=== PATIENT | female | born 1965 | race Two or more races ===

== ENCOUNTER 2023-12-24 08:00 | Inpatient (IN) | payer OTHER ==
[~2023-12-24] VITALS: Ht 162.6 cm; Wt 97.5 kg
[2023-12-24] MEDS ORDERED: NABUMETONE750 MG PO (10:11)
[2023-12-24] MEDS ORDERED: TYLENOL ARTHRI650 MG PO (10:12)
[2023-12-24] MEDS ORDERED: DICLOFENAC-MIS1 EAC1 PO (10:13)
[2023-12-24 10:33] LABS: PH,URINE 5.5 (5.0-8.0); URINE APPEARANCE Cloudy; URINE BILIRRUBIN Negative (NEGATIVE); URINE BLOOD Negative; URINE COLOR Yellow; URINE GLUCOSE Negative (NEGATIVE); URINE KETONE Negative (NEGATIVE); URINE LEUKOCYTE Small; URINE NITRATE Positive; URINE PROTEIN Negative (NEGATIVE); URINE UROBILINOGEN 0.2 E.U./dl
[2023-12-24 10:38] LABS: URINE RBC 3.3 uL (0.0-20.8); URINE WBC 124.8 uL (0.0-23.2)
[2023-12-24 10:49] LABS: URINE BACTERIA > 9821.5 uL (0.0-1933)
[2023-12-24 10:53] LABS: HEMATOCRIT 42.6 % (36.0-45.00); HEMOGLOBIN 14.2 g/dL (12.0-15.00); MEAN CELL VOLUME 81.2 fL (80.00-100.00); MEAN CORPUSCULAR HEMOGLOBIN 27.1 pg (27.00-32.0); MEAN CORPUSCULAR HGB CONC 33.3 g/dl (32.0-36.0); PLATELET COUNT 277 K/uL (150-450); RED BLOOD COUNT 5.25 M/uL (4.00-6.00); RED CELL DISTRIBUTION WIDTH 15.2 % (11.5-14.5)
[2023-12-24 11:25] LABS: INR 1.01; PARTIAL THROMBOPLASTIN TIME 31.1 SECONDS (22.0-34.0)
[2023-12-24 11:30] LABS: ALBUMIN 3.7 gm/dL (3.4-5.0); BILIRUBIN TOTAL 0.54 mg/dL (0.3-1.2); CREATININE SERUM 0.82 mg/dL (0.55-1.02); GFR 71.35; GLOBULINA 3.5 G/DL (2.4-3.5); POTASSIUM 4.45 mEq/L (3.5-5.1); TOTAL PROTEIN 7.2 gm/dL (6.4-8.2)
[2023-12-30] MEDS ORDERED: CEFAZOLIN SODIUM 1,000 MG VIAL ONE ×3 (06:58→13:22)
[2023-12-30] MEDS ORDERED: TRANEXAMIC ACID 100MG/1ML (1000MG) AMPUL IV ONE ×2 (06:58→07:10)
[2023-12-30] MEDS ORDERED: BUPIVACAINE HCL/MPF 0.5% 30ML VIAL ONE (07:06)
[2023-12-30] MEDS ORDERED: LIDOCAINE HCL 1%/EPINEPHRINE 20ML VIAL IJ ONE (07:06)
[2023-12-30] MEDS ORDERED: ISOPROPYL ALCOHOL 30 ML OUNCE TOP ONE (07:06)
[2023-12-30] MEDS ORDERED: OxyCODONE HCL/APAP UD (PERCOCET) PO PRN (08:00)
[2023-12-30] MEDS ORDERED: ONDANSETRON HCL 2 MG/ML VIAL IV PRN (08:00)
[2023-12-30] MEDS ORDERED: KETOROLAC TROMETHAMINE 60 MG VIAL IM ONE (08:15)
[2023-12-30] MEDS ORDERED: MORPHINE SULFATE 4 MG/ML VIAL IV ONE ×3 (10:25→11:10)
[2023-12-30] MEDS ORDERED: CEFAZOLIN SODIUM 1,000 MG VIAL IV SCH (12:00)
[2023-12-30] MEDS ORDERED: MORPHINE SULFATE 4 MG/ML VIAL IV SCH (12:00)
[2023-12-30 14:41] VITALS: BP 117/67; O2SAT 95
[2023-12-30 15:00] VITALS: BP 133/64; O2SAT 98
[2023-12-30] MEDS ORDERED: ACETAMINOPHEN 500 MG GEL..CAP PO PRN (15:15)
[2023-12-30] MEDS ORDERED: ENALAPRILAT DIHYDRATE 1.25 MG/ML VIAL IV PRN (15:15)
[2023-12-30] MEDS ORDERED: FAMOTIDINE/PF 20 MG in 0.9 % SODIUM CHLORIDE 8 ML IV PUSH SCH (21:00)
[2023-12-30] MEDS ORDERED: GABAPENTIN 100 MG CAPSULE PO SCH (21:00)
[2023-12-30] MEDS ORDERED: ORPHENADRINE CITRATE 100 MG TABLET PO SCH (21:00)
[2023-12-31 00:56] VITALS: BP 103/68; O2SAT 95
[2023-12-31 00:57] VITALS: BP 103/68; O2SAT 96
[2023-12-31 06:29] LABS: HEMATOCRIT 39.2 % (36.0-45.00); MEAN CELL VOLUME 82.6 fL (80.00-100.00); MEAN CORPUSCULAR HEMOGLOBIN 27.4 pg (27.00-32.0); MEAN CORPUSCULAR HGB CONC 33.2 g/dl (32.0-36.0); PLATELET COUNT 219 K/uL (150-450); RED BLOOD COUNT 4.74 M/uL (4.00-6.00); RED CELL DISTRIBUTION WIDTH 14.9 % (11.5-14.5)
[2023-12-31 08:24] VITALS: BP 124/57; O2SAT 93
[2023-12-31] MEDS ORDERED: ENOXAPARIN SODIUM 30 MG/0.3 ML SYRINGE SUBCUTANEO SCH (09:00)
[2023-12-31] MEDS ORDERED: IRON FUM,PS/FOLIC ACID/VITC/B3 1 CAP CAPSULE PO SCH (12:00)
[2023-12-31] MEDS ORDERED: Cyanocobalamin/Mecobalamin 1 TAB.SL SL SCH (12:00)
[2023-12-31 16:58] VITALS: BP 106/54; O2SAT 95
[2023-12-31] MEDS ORDERED: VITAMIN B COMPLEX 1 EACH PO SCH (17:00)
[2024-01-01 01:14] VITALS: BP 139/66; O2SAT 97
[2024-01-01 07:16] LABS: HEMATOCRIT 38.4 % (36.0-45.00); HEMOGLOBIN 12.8 g/dL (12.0-15.00); MEAN CELL VOLUME 82.5 fL (80.00-100.00); MEAN CORPUSCULAR HEMOGLOBIN 27.4 pg (27.00-32.0); MEAN CORPUSCULAR HGB CONC 33.3 g/dl (32.0-36.0); PLATELET COUNT 225 K/uL (150-450); RED BLOOD COUNT 4.65 M/uL (4.00-6.00); RED CELL DISTRIBUTION WIDTH 14.9 % (11.5-14.5)
[2024-01-01 08:00] VITALS: BP 161/74; O2SAT 97
[2024-01-01 15:32] VITALS: BP 119/77; O2SAT 96
[2024-01-01] MEDS ORDERED: FAMOtidine 20 MG TABLET PO SCH (21:00)
== END 2024-01-01 20:04 | DRG 470 ==
LOC: O/R 12-30 06:40 → SURG 12-30 07:00 → O/R 12-30 08:00 → SURH 12-30 10:55 → SURG 12-30 11:06
PROVIDERS: ADMIT Orthopaedic Surgery; ATTEND Orthopaedic Surgery
PROC: 0SRC0JZ Replacement of Right Knee Joint with Synthetic Substitute, Open Approach (ICD-10-PCS; principal; 2023-12-30 07:00)
DX: M17.11 Unilateral primary osteoarthritis, right knee (principal); D62 Acute posthemorrhagic anemia; M85.661 Other cyst of bone, right lower leg